=== PATIENT | male | born 1970 ===

== ENCOUNTER 2022-05-11 20:52 | Emergency (ER) | payer OTHER ==
[2022-05-11] MEDS ORDERED: Haloperidol Lactate 5 MG/ML SDV IM ONE ×2 (21:01→22:20)
[2022-05-11] MEDS ORDERED: LORazepam 2 MG/ML SDV IM ONE ×2 (21:02→22:21)
[2022-05-11] MEDS ORDERED: diphenhydrAMINE 50 MG/ML SDV IM ONE (21:02)
[2022-05-11 22:27] LABS: ESTIMATED GFR 67 mL/min (>60)
[2022-05-11 22:56] LABS: CORONAVIRUS COVID-19 NAA NEGATIVE (NEGATIVE)
[2022-05-11 22:59] LABS: ACETAMINOPHEN < 2 ug/mL (<2)
[2022-05-12] MEDS ORDERED: Sodium Chloride 0.9% 1,000 ML IV ONE (00:48)
[2022-05-12] MEDS ORDERED: Sodium Chloride 0.9% 10 ML Syringe FLUSH PRN (00:48)
[2022-05-12] MEDS ORDERED: Haloperidol Lactate 5 MG/ML SDV IV ONE (00:54)
[2022-05-12] MEDS ORDERED: LORazepam 2 MG/ML SDV IVPUSH ONE (00:55)
[2022-05-12] MEDS ORDERED: Sodium Chloride 0.9% 1,000 ML IV SCH ×2 (02:00→07:30)
== END 2022-05-12 15:40 | disposition left against medical advice (07) ==
LOC: FB.ED 20:52
DX: F15.129 Other stimulant abuse with intoxication, unspecified (principal); F20.9 Schizophrenia, unspecified; M62.82 Rhabdomyolysis; Z20.822 Contact with and (suspected) exposure to COVID-19
CPT/HCPCS: 0241U; 36415; 80053; 80143; 80179; 80307; 81001; 82550; 83605; 83735; 84484; 85025; 93005; 93010; 96360; 96361; 96372; 96374; 96375; 99285; 99285-25; J1200; J1630; J2060; J3490; J7030